=== PATIENT | male | born 1995 | race Caucasian/White ===

== ENCOUNTER 2018-07-21 03:12 | Inpatient (IN) | payer BC ==
[2018-07-21] MEDS ORDERED: LORazepam INJ* 2 MG/ML 1 ML VIAL IM ONE (04:16)
[2018-07-21] MEDS ORDERED: Haloperidol INJ IV/IM* 5 MG/ML AMP IM ONE (04:16)
[2018-07-21] MEDS ORDERED: hydrOXYzine IM* 50 MG/ML VIAL IM ONE (04:17)
[2018-07-21 04:51] LABS: Urine Appearance Clear; Urine Blood 1+ (Negative); Urine Color Straw; Urine Ketones Negative (Negative); Urine Protein Negative (Negative); Urine Red Blood Cell Trace(0-2/hpf) (Absent); Urine Specific Gravity 1.008 (1.010-1.030); Urine Urobilinogen Negative (Negative); Urine White Blood Cell Absent (Absent)
[2018-07-21 05:11] LABS: ABS Basophils 0.1 10^3/ul (0-0.2); ABS Eosinophils 0.2 10^3/ul (0-0.6); ABS Monocytes 0.9 10^3/ul (0-0.8); ABS Neutrophils 10.6 10^3/ul (1.5-7.7); ABS Nucleated RBC 0 10^3/ul; Eosinophil % 1.4 %; Hematocrit 47 % (42-52); Hemoglobin 16.2 g/dl (14.0-18.0); Lymphocyte % 14.7 %; Mean Corpuscular HGB Conc 35 g/dl (31-36); Mean Corpuscular Hemoglobin 30 pg (27-31); Mean Corpuscular Volume 86 fL (80-94); Mean Platelet Volume 7.6 fL (7.4-10.4); Nucleated Red Blood Cells % 0.1; Platelet Count 259 10^3/ul (150-450); Red Blood Count 5.46 10^6/ul (4.00-5.40); Red Cell Distribution Width 14 % (10.5-15); White Blood Count 13.7 10^3/ul (3.5-10.8)
[2018-07-21 05:27] LABS: EGFR Non-African American 118.6 (>60)
--- NOTE | 2018-07-21 06:47 | ED ---
Psychiatric Complaint - HPI Summary HPI Summary: Patient is a 23 y/o M presenting to ED with alcohol intoxication and SI. When asked what is going on, patient states, "I'm a little sad". When asked if he was having SI, he responds, "a little". Patient denies plan of SI. Patient's friend, who is present in the room, states that he found patient actively writing a suicide note. He notes that patient has been depressed for a while and states that patient drinks alc nightly. Friend reports that patient stated that he was planning on killing himself tomorrow. On triage, pain is denied, Etoh is noted to aggravate Sx, nothing is reported to alleviate Sx. Home medications and allergies are reviewed. - History Of Current Complaint Chief Complaint: EDMentalHealth Time Seen by Provider: 07/21/18 03:30 Hx Obtained From: Patient, Other: - patient's friend Onset/Duration: Still Present Timing: Constant Severity Currently: None - pain denied Character: Depressed Aggravating Factor(s): Alcohol Use Alleviating Factor(s): Nothing Associated Signs And Symptoms: Positive: Negative Has Suicidal: Reports: Thoughts. Denies: With A Plan - Allergies/Home Medications Home Medications: Home Medications Lisdexamfetamine Dimesylate [Vyvanse] 20 mg PO DAILY 07/21/18 [History Confirmed 07/21/18] PMH/Surg Hx/FS Hx/Imm Hx Sensory History: Denies: Hx Legally Blind, Hx Deafness Opthamlomology History: Denies: Hx Legally Blind EENT History: Denies: Hx Deafness Infectious Disease History: No Infectious Disease History: Denies: Traveled Outside the [place] in Last 30 Days - Family History Known Family History: Negative: Blood Disorder - Social History Alcohol Use: Daily Substance Use Type: Reports: None Smoking Status (MU): Light Every Day Tobacco Smoker Review of Systems Negative: Fever - on vitals, temp is 97 F Positive: Depressed, Other - SI endorsed All Other Systems Reviewed And Are Negative: Yes Physical Exam - Summary Physical Exam Summary: VITAL SIGNS: Reviewed. GENERAL: Patient is a well-developed and nourished male who is lying comfortable in the stretcher. Patient is not in any acute respiratory distress. He appears to be intoxicated. HEAD AND FACE: No signs of trauma. No ecchymosis, hematomas or skull depressions. No sinus tenderness. EYES: PERRLA, EOMI x 2, No injected conjunctiva, no nystagmus. EARS: Hearing grossly intact. Ear canals and tympanic membranes are within normal limits. MOUTH: Oropharynx within normal limits. NECK: Supple, trachea is midline, no adenopathy, no JVD, no carotid bruit, no c- spine tenderness, neck with full ROM. CHEST: Symmetric, no tenderness at palpation LUNGS: Clear to auscultation bilaterally. No wheezing or crackles. CVS: Regular rate and rhythm, S1 and S2 present, no murmurs or gallops appreciated. ABDOMEN: Soft, non-tender. No signs of distention. No rebound no guarding, and no masses palpated. Bowel sounds are normal. EXTREMITIES: FROM in all major joints, no edema, no cyanosis or clubbing. NEURO: Alert and oriented x 3. No acute neurological deficits. Speech is normal and follows commands. SKIN: Dry and warm Triage Information Reviewed: Yes Vital Signs On Initial Exam: Initial Vitals Temp Pulse Resp BP Pulse Ox 97 F 81 16 138/82 99 07/21/18 03:17 07/21/18 03:17 07/21/18 03:17 07/21/18 03:17 07/21/18 03:17 Vital Signs Reviewed: Yes Diagnostics - Vital Signs Vital Signs Temp Pulse Resp BP Pulse Ox 07/21/18 05:44 75 85/39 95 07/21/18 05:42 72 75/35 94 07/21/18 05:12 67 86/41 94 07/21/18 05:06 18 07/21/18 05:00 82 92 07/21/18 04:42 74 128/72 99 07/21/18 04:12 122/95 07/21/18 04:00 81 97 07/21/18 03:43 80 99 07/21/18 03:42 80 130/88 98 07/21/18 03:17 97 F 81 16 138/82 99 - Laboratory Lab Results: Lab Results 07/21/18 07/21/18 07/21/18 Range/Units 04:14 04:14 05:00 WBC 13.7 H (3.5-10.8) 10^3/ul RBC 5.46 H (4.00-5.40) 10^6/ul Hgb 16.2 (14.0-18.0) g/dl Hct 47 (42-52) % MCV 86 (80-94) fL MCH 30 (27-31) pg MCHC 35 (31-36) g/dl RDW 14 (10.5-15) % Plt Count 259 (150-450) 10^3/ul MPV 7.6 (7.4-10.4) fL Neut % (Auto) 77.0 % Lymph % (Auto) 14.7 % [place] % (Auto) 6.4 % Eos % (Auto) 1.4 % Baso % (Auto) 0.5 % Absolute Neuts (auto) 10.6 H (1.5-7.7) 10^3/ul Absolute Lymphs (auto) 2.0 (1.0-4.8) 10^3/ul Absolute Monos (auto) 0.9 H (0-0.8) 10^3/ul Absolute Eos (auto) 0.2 (0-0.6) 10^3/ul Absolute Basos (auto) 0.1 (0-0.2) 10^3/ul Absolute Nucleated RBC 0 10^3/ul Nucleated RBC % 0.1 Sodium (135-145) mmol/L Potassium (3.5-5.0) mmol/L Chloride (101-111) mmol/L Carbon Dioxide (22-32) mmol/L Anion Gap (2-11) mmol/L BUN (6-24) mg/dL Creatinine (0.67-1.17) mg/dL Est GFR ( Amer) (>60) Est GFR (Non-Af Amer) (>60) BUN/Creatinine Ratio (8-20) Glucose (70-100) mg/dL Calcium (8.6-10.3) mg/dL Total Bilirubin (0.2-1.0) mg/dL AST (13-39) U/L ALT (7-52) U/L Alkaline Phosphatase (34-104) U/L Total Protein (6.4-8.9) g/dL Albumin (3.2-5.2) g/dL Globulin (2-4) g/dL Albumin/Globulin Ratio (1-3) TSH (0.34-5.60) mcIU/mL Urine Color Straw Urine Appearance Clear Urine pH 6.0 (5-9) Ur Specific [place] 1.008 L (1.010-1.030) Urine Protein Negative (Negative) Urine Ketones Negative (Negative) Urine Blood 1+ A (Negative) Urine Nitrate Negative (Negative) Urine Bilirubin Negative (Negative) Urine Urobilinogen Negative (Negative) Ur Leukocyte Esterase Negative (Negative) Urine WBC (Auto) Absent (Absent) Urine RBC (Auto) Trace(0-2/hpf) (Absent) Urine Bacteria Absent (Absent) Urine Glucose Negative (Negative) Salicylates (<30) mg/dL Urine Opiates Screen None detected (None Detect) Acetaminophen mcg/mL Ur Barbiturates Screen None detected (None Detect) Ur Phencyclidine Scrn None detected (None Detect) Ur Amphetamines Screen Presumptive positive A (None Detect) U Benzodiazepines Scrn None detected (None Detect) Urine Cocaine Screen None detected (None Detect) U Cannabinoids Screen None detected (None Detect) Serum Alcohol (<10) mg/dL 07/21/18 Range/Units 05:00 WBC (3.5-10.8) 10^3/ul RBC (4.00-5.40) 10^6/ul Hgb (14.0-18.0) g/dl Hct (42-52) % MCV (80-94) fL MCH (27-31) pg MCHC (31-36) g/dl RDW (10.5-15) % Plt Count (150-450) 10^3/ul MPV (7.4-10.4) fL Neut % (Auto) % Lymph % (Auto) % [place] % (Auto) % Eos % (Auto) % Baso % (Auto) % Absolute Neuts (auto) (1.5-7.7) 10^3/ul Absolute Lymphs (auto) (1.0-4.8) 10^3/ul Absolute Monos (auto) (0-0.8) 10^3/ul Absolute Eos (auto) (0-0.6) 10^3/ul Absolute Basos (auto) (0-0.2) 10^3/ul Absolute Nucleated RBC 10^3/ul Nucleated RBC % Sodium 142 (135-145) mmol/L Potassium 3.5 (3.5-5.0) mmol/L Chloride 107 (101-111) mmol/L Carbon Dioxide 23 (22-32) mmol/L Anion Gap 12 H (2-11) mmol/L BUN 16 (6-24) mg/dL Creatinine 0.82 (0.67-1.17) mg/dL Est GFR ( Amer) 143.5 (>60) Est GFR (Non-Af Amer) 118.6 (>60) BUN/Creatinine Ratio 19.5 (8-20) Glucose 101 H (70-100) mg/dL Calcium 9.6 (8.6-10.3) mg/dL Total Bilirubin 1.80 H (0.2-1.0) mg/dL AST 19 (13-39) U/L ALT 17 (7-52) U/L Alkaline Phosphatase 48 (34-104) U/L Total Protein 7.3 (6.4-8.9) g/dL Albumin 4.6 (3.2-5.2) g/dL Globulin 2.7 (2-4) g/dL Albumin/Globulin Ratio 1.7 (1-3) TSH 2.23 (0.34-5.60) mcIU/mL Urine Color Urine Appearance Urine pH (5-9) Ur Specific [place] (1.010-1.030) Urine Protein (Negative) Urine Ketones (Negative) Urine Blood (Negative) Urine Nitrate (Negative) Urine Bilirubin (Negative) Urine Urobilinogen (Negative) Ur Leukocyte Esterase (Negative) Urine WBC (Auto) (Absent) Urine RBC (Auto) (Absent) Urine Bacteria (Absent) Urine Glucose (Negative) Salicylates < 2.50 (<30) mg/dL Urine Opiates Screen (None Detect) Acetaminophen < 15 mcg/mL Ur Barbiturates Screen (None Detect) Ur Phencyclidine Scrn (None Detect) Ur Amphetamines Screen (None Detect) U Benzodiazepines Scrn (None Detect) Urine Cocaine Screen (None Detect) U Cannabinoids Screen (None Detect) Serum Alcohol 319 H (<10) mg/dL Result Diagrams: 07/21/18 05:00 07/21/18 05:00 Lab Statement: Any lab studies that have been ordered have been reviewed, and results considered in the medical decision making process. Course/Dx - Course Course Of Treatment: Patient is a 23 y/o M presenting to ED with alcohol intoxication and SI. When asked what is going on, patient states, "I'm a little sad". When asked if he was having SI, he responds, "a little". Patient denies plan of SI. Patient's friend, who is present in the room, states that he found patient actively writing a suicide note. He notes that patient has been depressed for a while and states that patient drinks alc nightly. Friend reports that patient stated that he was planning on killing himself tomorrow. On physical exam, patient is noted to appear to be intoxicated. Patient was belligerent in ED, given Ativan 2 mg, hydroxyzine 50 mg, and Haldol 5 mg IM. Labs showed WBC 13.7, RBC 5.46, absolute neuts 10.6, absolute monos 0.9, anion gap 12, glucose 101, total bilirubin 1.8, TSH 2.23. UA showed blood 1+, trace RBC. Tox screen showed amphetamines presumptive positive, serum alcohol 319. Patient is signed out to Dr. Cash pending medical clearance and MHE of patient. - Differential Dx/Clinical Impression Provider Diagnosis: Suicidal ideation, Depression, Alcohol intoxication Discharge - Sign-Out/Discharge Documenting (check all that apply): Sign-Out Patient Signing out patient TO: Anatoliy Cash Receiving patient FROM: Roya Salcedo - Discharge Plan - Attestation Statements Document Initiated by Scribe: Yes Documenting Scribe: LEATHA ORELLANA Provider For Whom Esau is Documenting (Include Credential): ROYA SALCEDO MD Scribe Attestation: LEATHA Del Rosario, scribed for ROYA SALCEDO MD on 07/21/18 at 0653. Status of Scribe Document: Ready
--- NOTE | 2018-07-21 07:08 | ED ---
Progress - Progress Note Progress Note: Patient will be signed out from Dr. Cash to Dr. Salcedo during a shift change, pending a MHE. Re-Evaluation - Re-Evaluation First Eval Re-Evaluation Time: 07:32 Comment: The patient is sleeping comfortably. Their vital signs are stable, but they are difficult to arouse. Vital signs in the room: 87 bpm, HR 90/50. Course/Dx - Course Course Of Treatment: The patient was signed out from Dr. Salcedo. The patient is a 23-year-old male who presents to the emergency room with alcohol intoxication and suicidal ideation. Dr. Salcedo recommends for the patient to be medically cleared when his alcohol level is in the legal documents and for mental health ablation. He also reports that the patient was agitated and belligerent therefore he was given Benadryl, Haldol, and Ativan. At 7:15 AM, the patient is sleeping comfortable with normal vital signs. The patient at 1 PM is alert and oriented 3. The patient is sober, the patient seems to be within normal cognition. Therefore the patient is medically clear. He had a mental health evaluation. Patient will be signed out to Dr. Salcedo at shift change to follow- up the mental health recommendations. - Diagnoses Provider Diagnoses: Suicidal ideation, Depression, Alcohol intoxication Discharge - Sign-Out/Discharge Documenting (check all that apply): Sign-Out Patient, Receiving Sign-Out Signing out patient TO: James Salcedo Receiving patient FROM: James Salcedo - Discharge Plan Referrals: No Primary Care Phys,NOPCP [Primary Care Provider] - - Attestation Statements Document Initiated by Esau: Yes Documenting Scribe: Robert Fleming Provider For Whom Esau is Documenting (Include Credential): Anatoliy Cash MD Scribe Attestation: Robert Del Rosario, veronicaibed for Anatoliy Cash MD on 07/21/18 at 1856. Scribe Documentation Reviewed: Yes Provider Attestation: The documentation as recorded by the Robert rodriguez accurately reflects the service I personally performed and the decisions made by me, Anatoliy Cash MD Status of Scribe Document: Viewed
[2018-07-21] MEDS ORDERED: NS 0.9% 1000 ML* 2,000 ML IV ONE (11:40)
[2018-07-21] MEDS ORDERED: Acetaminophen TAB* 325 MG PO ONE (15:15)
--- NOTE | 2018-07-21 19:52 | ED ---
Progress - Progress Note Progress Note: Patient is received as a sign out from Dr. Cash to Dr. Salcedo at 1900 07/21/18 shift change pending MHE of this mental health patient. 194 - Patient's case had been reviewed by Dr. Townsend, patient will be voluntarily admitted to [facility] psych. Dr. Salcedo is agreeable. - Consult/PCP Time Called: 03:17 Course/Dx - Course Course Of Treatment: Patient is received as a sign out from Dr. Cash to Dr. Salcedo at 1900 07/21/18 shift change pending MHE of this mental health patient. 0743 - Patient's case had been reviewed by Dr. Townsend, patient will be voluntarily admitted to [facility] psych. Dr. Salcedo is agreeable. - Diagnoses Provider Diagnoses: Depressive disorder - Provider Notifications Discussed Care Of Patient With: Max Townsend Time Discussed With Above Provider: 07:43 Instructed by Provider To: Other - 07 - Patient's case had been reviewed by Dr. Townsend, patient will be voluntarily admitted to [facility] psych. Dr. Salcedo is agreeable. Discharge - Sign-Out/Discharge Documenting (check all that apply): Patient Departure - admit - Discharge Plan Condition: Good Disposition: PSYCHIATRIC FACILITY-[facility] Referrals: No Primary Care Phys,NOPCP [Primary Care Provider] - - Attestation Statements Document Initiated by Scribe: Yes Documenting Scribe: LEATHA ORELLANA Provider For Whom Scribe is Documenting (Include Credential): ROYA SALCEDO MD Scribe Attestation: ILEATHA scribed for ROYA SALCEDO MD on 07/21/18 at 1950. Status of Scribe Document: Ready
[2018-07-21] MEDS ORDERED: Diazepam TAB(*) 5 MG PO ONE (20:47)
[2018-07-21] MEDS ORDERED: Mouth Piece, Nicotine* 1 EACH CARTRIDGE ONE (20:47)
[2018-07-21] MEDS ORDERED: Nicotine Inhaler* 10 MG AMP INH ONE (20:47)
[2018-07-21] MEDS ORDERED: Nicotine Inhaler* 10 MG AMP ONE (20:47)
[2018-07-21] MEDS ORDERED: Al Hydrox/Mg Hydrox/Simet LIQ* 30 ML UDC PO PRN (21:19)
[2018-07-21] MEDS ORDERED: Acetaminophen TAB* 325 MG PO PRN (21:19)
[2018-07-21] MEDS ORDERED: LORazepam PO 0-6 for WAM protocol PO SCH (22:00)
[2018-07-21] MEDS ORDERED: Mouth Piece, Nicotine* 1 EACH CARTRIDGE INH ONE (22:00)
[2018-07-22] MEDS: Folic Acid TAB* 1 MG DAILY PO SCH (11:40)
[2018-07-22] MEDS: Vitamin THERAPEUTIC TAB PO SCH (11:40)
[2018-07-22] MEDS: Thiamine TAB* 100 MG TAB DAILY (@ T+1) PO SCH (11:40)
[2018-07-22] MEDS ORDERED: diPHENhydraMINE PO* 50 MG ONE (14:29)
[2018-07-22] MEDS: Nicotine Inhaler* 10 MG AMP INH PRN ×4 (14:31→21:41)
[2018-07-22] MEDS ORDERED: diPHENhydraMINE PO* 50 MG PO ONE (15:00)
[2018-07-22] MEDS ORDERED: Venlafaxine EXT RELEASE CAP* 37.5 MG PO ONE (15:10)
--- NOTE | 2018-07-22 16:08 | HP ---
H&P (Free Text) History and Physical: JUSTIFICATION FOR ADMISSION: Patient presented to emergency room with suicidal ideation and plan, worsening depression and anxiety. He requires inpatient psychiatric admission in order to provide treatment and stabilization as he is a danger to himself. CHIEF COMPLAINT: "I could see suicidal attempt coming HISTORY OF THE PRESENT ILLNESS: Patient is a 23 y/o male, single, living with, attending giancarlo year at [employer] , with history of disorder. Patient was admitted to inpatient unit for worsening of his anxiety and depression, decrease sleep, preoccupied with generalized worries, feels restless, overwhelmed with psychosocial stressor including academic stress and recent exams, unable to function in social life. Patient was having suicidal thoughts and plan and hence presented to ED for an evaluation and treatment intoxicated with alcohol. Patient has been compliant with his Vyvanse to help with his attention deficit but it has not been able to help him organize his days which have increased his anxiety further. Patient reportedly has been struggling with his sleep and using alcohol on a daily basis at night to help with his sleep. Patient reports no manic symptoms. Patient reports no psychotic symptoms. Patient denied any suicidal intent or plan at the hospital and acceptive of the treatment. Patient reports no homicidal ideation on the unit. Patient continued to exhibit behavior that is in control and is cooperative with staff. Patient continues to reports anxiety and asking for medication as need and feels that his anxiety has fueled his depression. Patient is currently receiving Ativan as per [facility] protocol. PAST PSYCHIATRIC HISTORY: Patient has history of no inpatient psychiatric hospitalization. Patient has history of outpatient psychiatric treatment for his depression and anxiety in the past and currently is with a therapist at [facility] . Patients medications trial has been Adderall for his ADHD in the past that increased his anxiety and was started on Vyvanse and has reportedly been using it for a year. Patient reported no treatment of ADHD treatment in his school days. Until he reached [employer] and feels that he was unable to perform at his full potential in his classes due to his Attention deficit and requested his primary care to prescribe it. Patient has been in no inpatient or outpatient drug treatment. Patient has history of suicidal thoughts with plans but no attempt reported. But in ED patient did reports about an attempt 2 months ago which he never mentioned to anyone. Patient has history of no homicidal threats, intent or attempt. No access to firearm reported. SUBSTANCE ABUSE HISTORY: Patient uses alcohol on a daily basis variable amount. Patient would drink till he passes out and reports using a handle (1.75 L) of rum and whiskey at night. Urine toxicology was positive for amphetamine. Last use of alcohol on the day of presentation to ED. Patient has been in no inpatient and outpatient treatment for drugs. PAST MEDICAL HISTORY: No active medical problems ALLERGIES: NKA FAMILY PSYCHIATRIC HISTORY: Patient has family history of depression and anxiety in family. Patient reports no history of substance abuse in family. Patient reported suicide in distant family like his fourth cousin shot himself. FAMILY/PSYCHOSOCIAL HISTORY: Patient currently lives at student housing. Patient is single not in a romantic relationship. Patient did report break up few months ago from relationship of 2 years. Patient has no children. Patient education level is currently a giancarlo at [employer]. Patient was raised by his parents in a town near [place]. Patient reports having one biological younger brother that he feels is getting better in relationship with. Patient reports limited contact with his adoptive brother that his parents adopted. Patient support system includes his friends and parents. But patient do not want to involve his parents in his treatment as he feels they are annoying. REVIEW OF SYSTEMS: Patients review of symptoms was negative for any physical complaint. Labs and vitals were reviewed and BAL was 321 in ED. Patients ED physical exam was reviewed which is grossly normal other than intoxication from alcohol. Physical Exam Summary: VITAL SIGNS: Reviewed. GENERAL: Patient is a well-developed and nourished male who is lying comfortable in the stretcher. Patient is not in any acute respiratory distress. He appears to be intoxicated. HEAD AND FACE: No signs of trauma. No ecchymosis, hematomas or skull depressions. No sinus tenderness. EYES: PERRLA, EOMI x 2, No injected conjunctiva, no nystagmus. EARS: Hearing grossly intact. Ear canals and tympanic membranes are within normal limits. MOUTH: Oropharynx within normal limits. NECK: Supple, trachea is midline, no adenopathy, no JVD, no carotid bruit, no c- spine tenderness, neck with full ROM. CHEST: Symmetric, no tenderness at palpation LUNGS: Clear to auscultation bilaterally. No wheezing or crackles. CVS: Regular rate and rhythm, S1 and S2 present, no murmurs or gallops appreciated. ABDOMEN: Soft, non-tender. No signs of distention. No rebound no guarding, and no masses palpated. Bowel sounds are normal. EXTREMITIES: FROM in all major joints, no edema, no cyanosis or clubbing. NEURO: Alert and oriented x 3. No acute neurological deficits. Speech is normal and follows commands. SKIN: Dry and warm MENTAL STATUS EXAMINATION: Appearance: 23 y/o male, fairly kempt, cooperative, making fair eye contact, restless, fidgety and unable sit still. Behavior: cooperative Gait: normal Abnormal motor activity: hyperactive and restless Speech: normal tone and volume, rate and rhythm were somewhat increased Mood: depressed Affect: anxious and depressed, constrictive Thought process: goal directed Thought Content: Suicidal/Homicidal ideation: passive si, no hi Delusions: none Obsessions: none Phobia: none Perceptual disturbance: none Attention: fair Orientation: grossly intact Concentration: limited Memory: fair Insight: fair Judgment: fair Impulse control: fair IMPRESSION: Patient with history of Anxiety and attention deficit. Patient currently admitted due to worsening of anxiety and depression with suicidal thoughts and plan. Patient has also struggled with alcohol use on a daily basis to help with his anxiety and decreased sleep. Patient is a danger to self and if discharged hence will be stabilized on inpatient unit with medication adjustments and therapy. DIAGNOSIS: Major Depression Disorder, Anxiety Disorder unspecified, Alcohol Abuse, H/o Attention Deficit Disorder Prov: Alcohol Induced Depressive Disorder PLAN: Admit to U on Q 15 min observation. Patient is full code. Patient is on voluntary admission status Integrate patient into the milieu Individual and group psychotherapy MMPI and psychological consult with Dr. Keller. Social work consult for therapy and discharge planning Will hold family meeting with parents to increase Data base, if needed and patient agreed. Patient gave informed consent to start the following medications: Patient to continue with [facility] protocol for alcohol withdrawal. Patient was started on Effexor XR 37 .5 mg PO Q daily with plan to increase as tolerated and needed to assist with depression/anxiety and Attention deficit symptoms. Patient was started on Benadryl PRN for anxiety. Will continue to monitor and f/u for improvement and side effects. Diana King MD Attending Psychiatrist
[2018-07-22] MEDS: Nicotine GUM* 2 MG PO PRN ×2 (16:41→19:04)
[2018-07-22] MEDS: diPHENhydraMINE PO* 50 MG PO PRN (21:41)
[2018-07-23] MEDS: Nicotine Inhaler* 10 MG AMP INH PRN ×6 (05:46→20:13)
[2018-07-23] MEDS: diPHENhydraMINE PO* 50 MG PO PRN (09:07)
[2018-07-23] MEDS: Folic Acid TAB* 1 MG DAILY PO SCH (09:08)
[2018-07-23] MEDS: Thiamine TAB* 100 MG TAB DAILY (@ T+1) PO SCH (09:08)
[2018-07-23] MEDS: Vitamin THERAPEUTIC TAB PO SCH (09:08)
[2018-07-23] MEDS: clonazePAM TAB(*) 0.5 MG PO SCH ×2 (10:49→22:37)
[2018-07-23] MEDS: Venlafaxine EXT RELEASE CAP* 75 MG PO SCH (10:49)
[2018-07-23] MEDS: Nicotine GUM* 2 MG PO PRN ×2 (10:50→20:14)
--- NOTE | 2018-07-23 11:34 | PN ---
MHU: Group Therapy Note - Service Type Service Type: [id number] Group Psychotherapy - Cognitive Behavioral Group Therapy ( CBT):Patient was attentive and participatory in CBT programming this morning, and remained in good behavioral control. Patient expressed positive insights regarding relevant treatment interventions and goals.
--- NOTE | 2018-07-23 12:27 | PN ---
Subjective - Subjective Date of Service: 07/23/18 Service Type: 26197 Hosp care 15 min low complexity Subjective: Patient was seen by self, discussed with treatment team, chart was reviewed. Patient has been compliant with his medications, reports increase anxiety and depression. Patient has been resistant to change in Vyvanse and appear to be rationalizing its need and also refused to take Benadryl for break through anxiety. Patient melisa that that was helping with is depression and anxiety. Patient has been resistant to involve parents in his treatment. Patient has history of a distant cousin that killed himself with a gun. Patient was informed of safe act law and needing to inform law enforcement. As patient intends to return home from the hospital and has stated that father has a gun at home. Patient reported that he took benadryl last night and that was not helpful. Given recent alcohol abuse patient appears to have tendency to abuse medications as well hence clonazepam is to be used for a short term while effexor helps with anxiety and depression. Patient sleeping has been some what better but still disturbed. Patient eating has been fair. Patient has been cooperative with staff. Patient behavior has been in control. Patient mood was anxious and dysphoric. Patient has been reporting no suicidal or homicidal ideation. No psychotic symptoms of delusions or hallucinations. Objective - Appearance Appearance: Healthy Appearing Dysmorphic Features: No Hygiene: Normal Grooming: Fairly Well Kept - Behavior Psychomotor Activities: Normal Exhibits Abnormal Movement: No - Attitude and Relatedness Attitude and Relatedness: Superficially Cooperative - somewhat manipulative about needing vyvanse and was educated about its effect on mood and anxiety Eye Contact: Fair - Speech Quality: Unpressured Latencies: Normal Quantity: Appropriate - Mood Patient's Decription of Mood: "Anxious" - Affect Observed Affect: Tense Affect Consistent with: Dysphoria - Thought Process Patient's Thought Process: Goal Directed Thought Content: No Passive Wish, No Suicidal Planning, No Homicidal Ideation, No Paranoid Ideation - Sensorium Experiencing Hallucinations: No, Sensorium is Clear Type of Hallucinations: Visual: No, Auditory: No, Command: No - Level of Consciousness Level of Consciousness: Alert Orientation: Yes Intact, Yes Orientated to Time, Yes Orientated to Place, Yes Orientated to Person - Impulse Control Impulse Control: Intact - Insight and Judgement Insight and Judgement: Fair - Group Participation Particating in Group Activities: Yes - Medication Management Medication Management Adherence: Yes Assessment - Assessment Merits Inpatient Hospitalization: For Immediate Safety, For Stabilization, For Discharge Planning Inpatient DSM-V Dx: F41.1 Clinical Impression: Patient with history of Anxiety and attention deficit. Patient currently admitted due to worsening of anxiety and depression with suicidal thoughts and plan. Patient has also struggled with alcohol use on a daily basis to help with his anxiety and decreased sleep. Patient is a danger to self and if discharged hence will be stabilized on inpatient unit with medication adjustments and therapy. MHU: Problem List - Patient Problems (1) Depressive disorder Current Visit: Yes Status: Acute Code(s): F32.9 - MAJOR DEPRESSIVE DISORDER , SINGLE EPISODE, UNSPECIFIED SNOMED Code(s): 03355612 (2) Alcohol use disorder Current Visit: Yes Status: Acute Code(s): LGM8484 - SNOMED Code(s): 59877016 (3) Generalized anxiety disorder Current Visit: Yes Status: Acute Code(s): F41.1 - GENERALIZED ANXIETY DISORDER SNOMED Code(s): 65924714 Plan - Plan Treatment Plan: Name: ALTAGRACIA CANNON Birthdate: 1995 [id number] - Patient continues to be hospitalized due to recent suicidal thoughts with plan , depression and anxiety. - Patient's medications were adjusted after informed consent with increment in Effexor XR to 75 mg PO QAM, Patient was started on Clonazepam 0.5 mg BID to help with anxiety as he did not show any interest and refuse to take benadryl. - Patient will be monitored for improvement and side effects. Risk and benefits were discussed. - Patient was encouraged to continue his participation in the milieu, group and individual therapy. Medications: Current Medications Acetaminophen (Tylenol Tab*) 650 mg PO Q4H PRN PRN Reason: PAIN or TEMP > 101 F Al Hydrox/Mg Hydrox/Simethicone (Maalox Plus*) 30 ml PO Q4H PRN PRN Reason: INDIGESTION Clonazepam (Klonopin Tab(*)) 0.5 mg PO BID [facility] Last Admin: 07/23/18 10:49 Dose: 0.5 mg Diphenhydramine HCl (Benadryl Po*) 50 mg PO Q6H PRN PRN Reason: ANXIETY Last Admin: 07/23/18 09:07 Dose: 50 mg Folic Acid (Folvite Tab*) 1 mg PO DAILY [facility] Last Admin: 07/23/18 09:08 Dose: 1 mg Lorazepam (Ativan Tab(*)) 0 - 6 mg PO .PER [facility]; Protocol Last Admin: 07/21/18 21:55 Dose: 2 mg Multivitamins (Theragran Tab*) 1 tab PO DAILY [facility] Last Admin: 07/23/18 09:08 Dose: 1 tab Nicotine (Nicotine Inhaler*) 10 mg INH Q2H PRN PRN Reason: CRAVING Last Admin: 07/23/18 12:03 Dose: 10 mg Nicotine Polacrilex (Nicotine Gum*) 2 mg PO Q2H PRN PRN Reason: CRAVING Last Admin: 07/23/18 10:50 Dose: 2 mg Thiamine HCl (Vitamin B-1 Tab*) 100 mg PO DAILY [facility] Last Admin: 07/23/18 09:08 Dose: 100 mg Venlafaxine HCl (Effexor Xr Cap*) 75 mg PO DAILY [facility] Last Admin: 07/23/18 10:49 Dose: 75 mg
[2018-07-24 08:17] VITALS: BP 118/70
[2018-07-24] MEDS: Thiamine TAB* 100 MG TAB DAILY (@ T+1) PO SCH (08:22)
[2018-07-24] MEDS: Venlafaxine EXT RELEASE CAP* 75 MG PO SCH (08:22)
[2018-07-24] MEDS: Vitamin THERAPEUTIC TAB PO SCH (08:22)
[2018-07-24] MEDS: Folic Acid TAB* 1 MG DAILY PO SCH (08:22)
[2018-07-24] MEDS: clonazePAM TAB(*) 0.5 MG PO SCH (08:22)
[2018-07-24] MEDS: Nicotine Inhaler* 10 MG AMP INH PRN (08:25)
--- NOTE | 2018-07-24 13:27 | DS ---
Subjective - Subjective Service Types: [id number] [facility] Day Mgmt complex over 30 min Discharge Date: 07/24/18 Subjective: JUSTIFICATION FOR ADMISSION: Patient presented to emergency room with suicidal ideation and plan, worsening depression and anxiety. He requires inpatient psychiatric admission in order to provide treatment and stabilization as he is a danger to himself. CHIEF COMPLAINT: "I could see suicidal attempt coming HISTORY OF THE PRESENT ILLNESS: Patient is a 23 y/o male, single, living with, attending giancarlo year at [employer] , with history of disorder. Patient was admitted to inpatient unit for worsening of his anxiety and depression, decrease sleep, preoccupied with generalized worries, feels restless, overwhelmed with psychosocial stressor including academic stress and recent exams, unable to function in social life. Patient was having suicidal thoughts and plan and hence presented to ED for an evaluation and treatment intoxicated with alcohol. Patient has been compliant with his Vyvanse to help with his attention deficit but it has not been able to help him organize his days which have increased his anxiety further. Patient reportedly has been struggling with his sleep and using alcohol on a daily basis at night to help with his sleep. Patient reports no manic symptoms. Patient reports no psychotic symptoms. Patient denied any suicidal intent or plan at the hospital and acceptive of the treatment. Patient reports no homicidal ideation on the unit. Patient continued to exhibit behavior that is in control and is cooperative with staff. Patient continues to reports anxiety and asking for medication as need and feels that his anxiety has fueled his depression. Patient is currently receiving Ativan as per [facility] protocol. PAST PSYCHIATRIC HISTORY: Patient has history of no inpatient psychiatric hospitalization. Patient has history of outpatient psychiatric treatment for his depression and anxiety in the past and currently is with a therapist at [facility] . Patients medications trial has been Adderall for his ADHD in the past that increased his anxiety and was started on Vyvanse and has reportedly been using it for a year. Patient reported no treatment of ADHD treatment in his school days. Until he reached [employer] and feels that he was unable to perform at his full potential in his classes due to his Attention deficit and requested his primary care to prescribe it. Patient has been in no inpatient or outpatient drug treatment. Patient has history of suicidal thoughts with plans but no attempt reported. But in ED patient did reports about an attempt 2 months ago which he never mentioned to anyone. Patient has history of no homicidal threats, intent or attempt. No access to firearm reported. SUBSTANCE ABUSE HISTORY: Patient uses alcohol on a daily basis variable amount. Patient would drink till he passes out and reports using a handle (1.75 L) of rum and whiskey at night. Urine toxicology was positive for amphetamine. Last use of alcohol on the day of presentation to ED. Patient has been in no inpatient and outpatient treatment for drugs. PAST MEDICAL HISTORY: No active medical problems ALLERGIES: NKA FAMILY PSYCHIATRIC HISTORY: Patient has family history of depression and anxiety in family. Patient reports no history of substance abuse in family. Patient reported suicide in distant family like his fourth cousin shot himself. FAMILY/PSYCHOSOCIAL HISTORY: Patient currently lives at student housing. Patient is single not in a romantic relationship. Patient did report break up few months ago from relationship of 2 years. Patient has no children. Patient education level is currently a giancarlo at [employer]. Patient was raised by his parents in a town near [place]. Patient reports having one biological younger brother that he feels is getting better in relationship with. Patient reports limited contact with his adoptive brother that his parents adopted. Patient support system includes his friends and parents. But patient do not want to involve his parents in his treatment as he feels they are annoying. REVIEW OF SYSTEMS: Patients review of symptoms was negative for any physical complaint. Labs and vitals were reviewed and BAL was 321 in ED. Patients ED physical exam was reviewed which is grossly normal other than intoxication from alcohol. Physical Exam Summary: VITAL SIGNS: Reviewed. GENERAL: Patient is a well-developed and nourished male who is lying comfortable in the stretcher. Patient is not in any acute respiratory distress. He appears to be intoxicated. HEAD AND FACE: No signs of trauma. No ecchymosis, hematomas or skull depressions. No sinus tenderness. EYES: PERRLA, EOMI x 2, No injected conjunctiva, no nystagmus. EARS: Hearing grossly intact. Ear canals and tympanic membranes are within normal limits. MOUTH: Oropharynx within normal limits. NECK: Supple, trachea is midline, no adenopathy, no JVD, no carotid bruit, no c- spine tenderness, neck with full ROM. CHEST: Symmetric, no tenderness at palpation LUNGS: Clear to auscultation bilaterally. No wheezing or crackles. CVS: Regular rate and rhythm, S1 and S2 present, no murmurs or gallops appreciated. ABDOMEN: Soft, non-tender. No signs of distention. No rebound no guarding, and no masses palpated. Bowel sounds are normal. EXTREMITIES: FROM in all major joints, no edema, no cyanosis or clubbing. NEURO: Alert and oriented x 3. No acute neurological deficits. Speech is normal and follows commands. SKIN: Dry and warm MENTAL STATUS EXAMINATION ON ADMISSION: Appearance: 23 y/o male, fairly kempt, cooperative, making fair eye contact, restless, fidgety and unable sit still. Behavior: cooperative Gait: normal Abnormal motor activity: hyperactive and restless Speech: normal tone and volume, rate and rhythm were somewhat increased Mood: depressed Affect: anxious and depressed, constrictive Thought process: goal directed Thought Content: Suicidal/Homicidal ideation: passive si, no hi Delusions: none Obsessions: none Phobia: none Perceptual disturbance: none Attention: fair Orientation: grossly intact Concentration: limited Memory: fair Insight: fair Judgment: fair Impulse control: fair DIAGNOSIS ON ADMISSION: Major Depression Disorder, Anxiety Disorder unspecified , Alcohol Abuse, H/o Attention Deficit Disorder Prov: Alcohol Induced Depressive Disorder. DIAGNOSIS ON DISCHARGE: Major Depression Disorder, Anxiety Disorder unspecified , Alcohol Abuse, H/o Attention Deficit Disorder Prov: Alcohol Induced Depressive Disorder Objective - Appearance Appearance: Healthy Appearing Dysmorphic Features: No Hygiene: Normal Grooming: Fairly Well Kept - Behavior Psychomotor Activities: Normal Exhibits Abnormal Movement: No - Attitude and Relatedness Attitude and Relatedness: Cooperative Eye Contact: Fair - Speech Quality: Unpressured Latencies: Normal Quantity: Appropriate - Mood Patient's Decription of Mood: "Okay" - Affect Observed Affect: Fair Affect Consistent with: Euthymia - with some anxiety - Thought Process Patient's Thought Process: Coherent Thought Content: No Passive Wish, No Suicidal Planning, No Homicidal Ideation, No Paranoid Ideation - Sensorium Experiencing Hallucinations: No, Sensorium is Clear Type of Hallucinations: Visual: No, Auditory: No, Command: No - Level of Consciousness Level of Consciousness: Alert Orientation: Yes Intact, Yes Orientated to Time, Yes Orientated to Place, Yes Orientated to Person - Impulse Control Impulse Control: Intact - Insight and Judgement Insight and Judgement: Fair - Group Participation Particating in Group Activities: Yes - Medication Management Medication Management Adherence: Yes Treatment Course & Assessment Clinical Course & Impression: Patient is 23 y/o male with history of Anxiety and attention deficit disorder. Patient currently admitted due to worsening of anxiety and depression with suicidal thoughts and plan. Patient has also struggled with alcohol use on a daily basis to help with his anxiety and decreased sleep. Patient was a danger to self if discharged hence was stabilized on inpatient unit with medication adjustments and therapy. Patient was admitted to [facility] on Q 15 min observation. Patient is full code. Patient was on voluntary admission status. Integrated patient into the milieu Individual and group psychotherapy. Social work consulted for therapy and discharge planning. Patient gave informed consent to start [facility] protocol for alcohol withdrawal. Patient Vyvanse was switched to Effexor XR 37 .5 mg PO Q daily with plan to increase as tolerated and needed for depression/anxiety and Attention deficit disorder. Patient was also started on Benadryl PRN for anxiety. Patient was monitored and followed up for improvement and side effects. Patient was seen by self, discussed with treatment team, chart was reviewed. Patient was compliant with his medications, reported increase anxiety and depression. Patient was resistant to changes in Vyvanse due to his concerns of his ADHD symptoms worsening and affecting his academic performance. Patient refused to take Benadryl for break through anxiety as it was not helpful and also Klonopin increased his anxiety as per patient. Patient agreed to take Hydroxyzine PRN for anxiety upon discharge.As patient intends to return home from the hospital and reportedly family had a gun. Patient was resistant to involve parents in his treatment as they would "annoying" but signed release of information to speak to his parent later during hospitalization. Patient has history of a distant cousin that killed himself with a gun. Patient was informed of safe act law and needing to inform law enforcement or need to call family to ensure he does not have access to firearm on return to home. Patient gave permission to call home. Patient gave contact number of his mother but went to voicemail. Patient did not remember father's contact number and gave home phone number and gave permission to speak to his grand mother. Call was made with patient being present and safety plan providing safe environment was discussed with his grandmother and patient agreed with plan. Patient has been cooperative with staff. Patient behavior has been in control and safe on all checks. Patient was attentive and participatory in CBT programming this morning, and remained in good behavioral control. Patient expressed positive insights regarding relevant treatment interventions and goals. Patient's medications were adjusted after informed consent with increment in Effexor XR to 75 mg PO QAM, Patient mood was less anxious and more stable and wanted to be discharged and work on his treatment on outpatient basis for his ADHD and Anxiety/ Depression. Patient was also counseled about alcohol abuse and needing to abstain from it to improve anxiety and depression. Patient did not show any interest at this time in alcohol abuse rehab and feels that he can do on his own. Patient has been reporting no suicidal or homicidal ideation. No psychotic symptoms of delusions or hallucinations. Patietn behavior was safe on all checks. Patient was discussed with team and discharged with plan to follow up outpatient as he was not a danger to self and others and caring for self. Merits Inpatient Hospitalization: No Clear for Discharge: Adequate Clinical Respons, Acceptable Safety Profile, Low Utility of Inpt Care Inpatient DSM-V Dx: F41.1 Discharge Planning - Discharge Planning Discharge Plan: Outpatient Follow Up Outpatient Program: Counseling/Psych Services at [place] Recommendations for Continuing Care: Medication Management, Psychotherapy, Substance Abuse Counseling Medications: Discharge Medications Folic Acid (Folvite Tab*) 1 mg PO DAILY [facility] Last Admin: 07/24/18 08:22 Dose: 1 mg Thiamine HCl (Vitamin B-1 Tab*) 100 mg PO DAILY [facility] Last Admin: 07/24/18 08:22 Dose: 100 mg Venlafaxine HCl (Effexor Xr Cap*) 75 mg PO DAILY [facility] Last Admin: 07/24/18 08:22 Dose: 75 mg Hydroxyzine 50 mg PO Q6HRS PRN anxiety/sleep Discharge Planning: Prescriptions provided for discharge [x] Yes [] No Follow up care details as per social work arrangements. Patient response to discharge plan: [x] eager for discharge [] agreeable with discharge plan [] ambivalent about discharge [] disagrees with discharge today
== END 2018-07-24 14:00 | disposition home or self-care (01) | DRG 756 ==
LOC: ED 03:12 → BSU 21:51
PROVIDERS: ADMIT Psychiatry & Neurology Psychiatry; ATTEND Psychiatry & Neurology Psychiatry
PROC: GZHZZZZ Group Psychotherapy (ICD-10-PCS; principal; 2018-07-21)
DX: F41.1 Generalized anxiety disorder (principal); R45.851 Suicidal ideations; F10.14 Alcohol abuse with alcohol-induced mood disorder; F10.129 Alcohol abuse with intoxication, unspecified; Y90.8 Blood alcohol level of 240 mg/100 ml or more; F90.9 Attention-deficit hyperactivity disorder, unspecified type; F17.200 Nicotine dependence, unspecified, uncomplicated; Z81.8 Family history of other mental and behavioral disorders
CPT/HCPCS: 36415; 80053; 80307; 80320; 80329; 81003; 81015; 84443; 85025; 90853; 99222; 99231; 99238; 99284; A9270-GY; G0480; J1630; J2060; J3410